=== PATIENT | female | born 1990 | race Caucasian/White ===

== ENCOUNTER 2017-10-06 17:44 | Emergency (ER) | payer BC ==
[~2017-10-06] VITALS: Ht 165.1 cm; Wt 66.2 kg
[2017-10-06] MEDS ORDERED: LEXAPRO 10 MG T10 M2 PO (18:04)
[2017-10-06] MEDS ORDERED: SPRINTEC1 EACH PO (18:05)
[2017-10-06 18:31] LABS: HEMATOCRIT 39.2 % (37.0-47.0); HEMOGLOBIN 13.4 gm/dL (12.0-15.0); MCH 29.4 pg (26.0-34.0); MCHC 34.1 g/dL (28.0-37.0); MCV 86.1 fL (80.0-100.0); MPV 7.7 fl. (7.2-11.1); NUCLEATED RBCS 0 /100WBC; PLATELET COUNT* 275 thou/uL (150-400); RBC 4.55 mil/uL (4.20-5.00); RDW-CV 12.9 % (10.5-14.5); WBC 3.9 thou/uL (4.0-11.0)
[2017-10-06 18:37] LABS: CALCIUM 8.7 mg/dL (8.5-10.1); CREATININE 0.7 mg/dL (0.6-1.3); POTASSIUM 3.6 mmol/L (3.5-5.1)
[2017-10-06] MEDS ORDERED: COMPAZINE10 MG PO (18:53)
[2017-10-06] MEDS ORDERED: BUTALB-APAP-CA1 EACH PO (18:53)
[2017-10-06 18:55] VITALS: BP 122/64
[2017-10-06 19:09] LABS: ABSOLUTE EOSINOPHILS 0.2 thou/uL (0.0-0.7); ABSOLUTE LYMPHOCYTES 1.8 thou/uL (0.8-5.3); ABSOLUTE MONOCYTES 0.3 thou/uL (0.0-1.2); ABSOLUTE NEUTROPHILS 1.6 thou/uL (1.6-8.1); PLATELET ESTIMATE ADEQUATE
[2017-10-06 19:41] LABS: ESR (SEDRATE) 19 mm/hr (0-20)
== END 2017-10-06 18:55 | disposition home or self-care (01) ==
LOC: M.ERS 17:44
PROVIDERS: Nurse Practitioner Family
DX: R51 Headache (principal); F32.9 Major depressive disorder, single episode, unspecified